=== PATIENT | female | born 1945 | race Caucasian/White ===

== ENCOUNTER 2022-10-19 09:09 | Emergency (ER) | payer MEDICARE ==
[2022-10-19] VITALS (13 sets, daily range): BP systolic 91–147; BP diastolic 52–68
[~2022-10-19] VITALS: Ht 162.6 cm; Wt 70.3 kg
== END 2022-10-19 10:19 | disposition home or self-care (01) ==
LOC: ED 09:09
PROC: 2W3QX1Z Immobilization of Right Lower Leg using Splint (ICD-10-PCS; principal; 2022-10-19)
DX: S82.61XA Displaced fracture of lateral malleolus of right fibula, initial encounter for closed fracture (principal); W19.XXXA Unspecified fall, initial encounter; Y93.H9 Activity, other involving exterior property and land maintenance, building and construction; Y92.007 Garden or yard of unspecified non-institutional (private) residence as the place of occurrence of the external cause